=== PATIENT | male | born 1995 | race Caucasian/White ===

== ENCOUNTER 2024-05-01 17:58 | Emergency (ER) | payer BC, SELFPAY ==
[2024-05-01 17:59] VITALS: BP 163/102; PULSE 92; RESP 18; TEMP 36.2; O2SAT 100; BMI 27.1
[2024-05-01] MEDS: Lidocaine 1% (20 ml mdv) 20 ML Vial INFILT (18:45)
--- NOTE | 2024-05-01 18:57 | EX.ED.GENINJ ---
HPI History of Present Illness Chief Complaint: Laceration Informant: patient Narrative Narrative: 29-year-old male was at work today when he was crossing a beam and sustained a fall. He reached out and caught himself but sustained a left middle finger laceration and right wrist laceration. He notes his tetanus is up-to-date. He denies any other injuries. He applied a tourniquet and came to emergency. He is right-handed. [facility] Medical History Left ureteral stone Home Medications ?Medication ?Instructions ?Recorded ?Last Taken ?Type cephalexin 500 mg capsule 500 mg PO Q6 #28 CAPSULES 05/01/24 Unknown Rx Allergy/AdvReac Type Severity Reaction Status Date / Time No Known Allergies Allergy Verified 05/01/24 18:00 Surgical History Status post kidney autotransplantation Social History Smoking Status: Former smoker ROS ROS ED Constitutional Constitutional ED: Denies chills, fever(s) or weight loss Eyes Eyes: Denies change in vision or diplopia ENT ENT ED: Denies ear pain, rhinorrhea or sore throat Cardiovascular Cardiovascular: Denies chest pain, orthopnea, palpitations or racing heartbeat Respiratory/Chest Respiratory/Chest: Denies cough, dyspnea or orthopnea Gastrointestinal Gastrointestinal: Denies abdominal pain, diarrhea, nausea or vomiting Genitourinary Genitourinary ED: Denies dysuria, hematuria or urinary frequency Musculoskeletal Musculoskeletal: Denies arthralgias or myalgias Integumentary Reports other Details: See history of present illness ; Denies abscess or rash Neurologic Neurologic: Denies headache(s) or weakness Psychiatric Psychiatric: Denies anxiety, depression, suicidal ideation or suicidal thoughts Endocrine Endocrinology: Denies polydipsia, polyphagia or polyuria Allergic/Immunologic Allergic/Immunologic ED: Denies mouth swelling, tongue swelling or urticaria EXAM Physical Exam Const Vital Signs: 05/01/24 17:59 Temperature 97.2 F L Temperature Source Temporal Pulse Rate 92 Respiratory Rate 18 Blood Pressure 163/102 H Blood Pressure Mean 122 Pulse Ox 100 Oxygen Delivery Method Room Air Positive well nourished and well developed General Appearance ED: well developed HEENT Reports normocephalic, head/scalp atraumatic and moist mucous membranes Eyes PERRL and EOMs intact bilaterally Neck no lymphadenopathy, supple and no JVD Resp normal respiratory effort and clear to auscultation bilaterally Cardio regular rate, regular rhythm and no murmurs GI normal to inspection, nondistended, normoactive bowel sounds and non-tender Palpation: soft Back/Spine no CVA tenderness and normal ROM Extremity Extremity Narrative: Left middle finger on the palmar aspect demonstrates a superficial dermis partial avulsion of skin. Bleeding controlled. It measures about 2 cm in total length. Volar aspect of the right wrist demonstrates about a 9 cm nearly complete circular laceration with flap of skin. This is at the level of the wrist. There is some venous bleeding which was stopped with direct pressure. Inside the wound there appears to be a tendinous like structure in the subcutaneous tissue. Neurovascularly appears intact. Taking his hand through a variety of tendon function checks he appears to have full mobility and strength of the hand. Difficult to say exactly which tendon this is from. There is maybe a small konstantin in the tendon sheath of the palmaris longus. The piece in question is just lateral to the palmaris longus. General Extremety ED: Negative for edema General Extremity: Negative for edema Neuro oriented x3 and CN's II-XII intact bilaterally Sensorium / Orientation: alert Motor Exam: strength 5/5 throughout Psych mental status grossly normal Mood & Affect: Negative for depressed or tearful Skin no rashes or lesions noted and no wounds MDM MDM MDM Narrative Medical decision making narrative: Differential diagnosis includes but not limited to tendon laceration-partial and full, vein laceration arterial laceration nerve laceration skin laceration foreign body The right wrist was locally anesthetized using 1% lidocaine. Direct pressure achieved homeostasis. I washed and irrigated the wound using Shur-Clens sterile saline. I was able to fully cover the wound and sutured in place with a total of 17 simple interrupted 4-0 Ethilon sutures. He remains neurovascularly intact and functionally intact. The left middle finger was washed the flap of skin pressed down and secured with skin adhesive. Band-Aid applied. Patient's tetanus was updated. I did place him on Keflex and a wrist splint. I would have him follow-up with hand surgery. Stitches will need to be removed in about 10 days. Patient understands the plan and he understands local wound care and the need for the splint as well as hand follow-up. History & Record Review Discussion w/independent historian: Patient Discharge Plan Triage Chief Complaint: Laceration ED Provider: Mateus Jackson Dx/Rx/DC Orders Clinical Impression: Finger laceration, Laceration of left wrist, Flexor tendon laceration, wrist, open wound Prescriptions: New cephalexin 500 mg capsule 500 mg PO Q6 Qty: 28 0RF Primary Care Provider: Fortunato Gauthier Referrals: David Bernstein MD [Non-Staff] - As soon as possible (for hand surgery evaluation) Fortunato Gauthier DO [Primary Care Provider] - Print Language: Icelandic Disposition Disposition: Home, Self Care
[2024-05-01] MEDS: Diphth,Pertuss(Acell),Tet Vac 0.5 ML Vial IM (19:01)
[2024-05-01 19:14] VITALS: BP 157/87; PULSE 92; RESP 18; TEMP 36.7; O2SAT 97
== END 2024-05-01 19:15 | disposition home or self-care (01) ==
LOC: ED 19:04
PROVIDERS: Emergency Provider Emergency Medicine; Visit Provider Emergency Medicine
DX: S61.213A Laceration without foreign body of left middle finger without damage to nail, initial encounter (principal); S61.512A Laceration without foreign body of left wrist, initial encounter; S56.222A Laceration of other flexor muscle, fascia and tendon at forearm level, left arm, initial encounter; Z87.891 Personal history of nicotine dependence; W19.XXXA Unspecified fall, initial encounter
CPT/HCPCS: 12004; 90715; 99285